=== PATIENT | female | born 1995 | race African-American/Black ===

== ENCOUNTER 2016-11-03 17:40 | Emergency (ER) | payer OTHER ==
--- NOTE | ~2016-11-03 | CR142 ---
[facility] A Service of [facility] & [facility] RADIOLOGY TEXT RESULTS PATIENT: DEBORAH SHAFFER LOCATION: [facility] : [birth year] UNIT #: [id number] AGE: [address]: Arlen Wong SEX: F ORDER DR: [id number] [facility] [address] [place], [place] [address] [id number] E MR#: [id number] #: [id number] NAME: DEBORAH SHAFFER : 1995 SEX: F STUDY DATE/TIME: 11/03/2016 17:40 UNIT: [facility] ROOM: STUDY DESCRIPTION: CR Hand Min 3 Views Rt Attending Physician: Arlen Wong P.A.-C. Referring Physician: Primary Care Physician No Ordering Physician: Arlen Wong P.A.-C. Primary Care Physician: Primary Care Physician No MEDICAL IMAGING REPORT This report is preliminary unless electronic signature is present EXAM Right hand series HISTORY Fell on hand. Attention thumb. Happened today. Right wrist and hand pain. FINDINGS AP lateral and oblique radiographs of the right hand are presented. Poor quality study due to digital flexion on all views and digital overlap on the oblique and lateral views. Bony mineralization is normal. There is no indication of traumatic malalignment. There is a linear lucency through the proximal aspect of a sesamoid bone at the first metacarpal phalangeal joint. Most conspicuous on the AP view of the hand. The margins of this lucency are relatively well corticated. It is unclear if this represents a bipartite sesamoid bone, or a fracture through the sesamoid bone. If this is of fracture, the small proximal fragment measures about 2 mm in maximum diameter without significant distraction displacement or angulation. Correlate with location of patient's pain and mechanism of injury. There is no soft tissue defect, subcutaneous air or subcutaneous radiodense foreign body. Dictated by... Dashawn Hernandez M.D. THIS IS AN ELECTRONICALLY VERIFIED REPORT Dashawn Hernandez M.D. at 11/04/2016 12:31 PM Damon TD: 11/03/2016 22:42 JOB #: [id number] [facility] A Service of [facility] & [facility] RADIOLOGY TEXT RESULTS PATIENT: DEBORAH SHAFFER [facility]: [id number] [birth year] UNIT #: [id number] AGE: [address]: Arlen Wong SEX: F ORDER DR: MEDICAL IMAGING REPORT COPY
--- NOTE | ~2016-11-03 | CR282 ---
[facility] A Service of [facility] RADIOLOGY TEXT RESULTS PATIENT: DEBORAH SHAFFER LOCATION: [facility] : [birth year] UNIT #: [id number] AGE: [address]: Arlen Wong SEX: F ORDER DR: [id number] [facility] [address] [place], [place] [address] [id number] E MR#: [id number] Acc #: [id number] NAME: DEBORAH SHAFFER : 1995 SEX: F STUDY DATE/TIME: 11/03/2016 17:41 UNIT: [facility] ROOM: STUDY DESCRIPTION: CR Wrist Min 3 View Rt Attending Physician: Arlen Wong P.A.-C. Referring Physician: Primary Care Physician No Ordering Physician: Arlen Wong P.A.-C. Primary Care Physician: Primary Care Physician No MEDICAL IMAGING REPORT This report is preliminary unless electronic signature is present EXAM Right wrist series, 11/03/2016 HISTORY Fall. Fell on hand. Right hand and wrist pain, attention thumb. Happened today. FINDINGS AP, lateral and oblique radiographs of the right wrist are presented. Alignment is normal. Distal radius and ulna intact. The carpal bones appear intact. No traumatic malalignment suggested. The visualized bones of the hand appear intact, with the exception of a sesamoid bone at the first metacarpophalangeal joint level. At its proximal aspect, best visualized on the AP radiograph of the wrist, there is a linear lucency through the proximal aspect of the sesamoid bone. It is unclear if this is of chronic or acute time course. If this reflects an acute fracture, the proximal nondisplaced fragment measures about 2 mm in maximum diameter. It is possible that this is a bipartite sesamoid bone. Please correlate with location of patient's pain and mechanism of injury. Of note, there is no definite overlying soft tissue abnormality to increase suspicion for acute fracture. Dictated by... Dashawn Hernandez M.D. THIS IS AN ELECTRONICALLY VERIFIED REPORT Dashawn Hernandez M.D. at 11/04/2016 12:31 PM ELANA/teena TD: 11/03/2016 22:54 JOB #: [id number] [facility] A Service of [facility] RADIOLOGY TEXT RESULTS PATIENT: DEBORAH SHAFFER LOCATION: [facility] : [birth year] UNIT #: [id number] AGE: [address]: Arlen Wong SEX: F ORDER DR: MEDICAL IMAGING REPORT COPY
== END 2016-11-03 18:28 | disposition home or self-care (01) ==
LOC: CFTX 17:40
DX: S62.514A Nondisplaced fracture of proximal phalanx of right thumb, initial encounter for closed fracture (principal); W18.30XA Fall on same level, unspecified, initial encounter; Y92.009 Unspecified place in unspecified non-institutional (private) residence as the place of occurrence of the external cause
CPT/HCPCS: 29125; 73110; 73130; 84703; 99283

== ENCOUNTER 2017-04-25 18:10 | Emergency (ER) | payer OTHER ==
[~2017-04-25] VITALS: Ht 160 cm; Wt 102.0 kg
== END 2017-04-25 18:55 | disposition home or self-care (01) ==
LOC: CFTX 18:10 → CED 18:10 → CFTX 18:39
DX: S33.5XXA Sprain of ligaments of lumbar spine, initial encounter (principal); X50.0XXA Overexertion from strenuous movement or load, initial encounter
CPT/HCPCS: 84703; 96372; 99283; J1885